=== PATIENT | female | born 1945 | race Caucasian/White ===

== ENCOUNTER → 2018-11-08 | Outpatient (CLI) | payer MEDICARE ==
[2018-11-08 11:46] LABS: BASO # 0.1 (0.02-0.10); EOS # 0.2 (0.04-0.40); EOS % 1.8 % (1.0-5.0); HEMATOCRIT 46.6 % (37.0-47.0); HEMOGLOBIN 14.8 g/dL (12.5-16.0); LYMPH# 1.3 (1.50-4.00); MEAN CELL VOLUME 84 fl (78-100); MEAN CORPUSCULAR HEMOGLOBIN 27 pg (27-31); MEAN CORPUSCULAR HGB CONC 32 g/dL (33-37); MONO # 0.9 (0.20-0.80); NEU # 6.2 (1.40-6.50); PLATELET COUNT 214 K/mm3 (130-400); RED BLOOD COUNT 5.54 M/mm3 (4.10-5.30); RED CELL DISTRIBUTION WIDTH 16.5 % (11.5-14.5); WHITE BLOOD COUNT 8.7 K/mm3 (4.8-10.8)
[2018-11-08 11:49] LABS: CALCIUM 9.2 mg/dL (8.4-10.2); POTASSIUM 4.7 mmol/L (3.6-5.0)
== END ==
LOC: LAB 11:16
PROVIDERS: Physician Assistant
DX: I50.9 Heart failure, unspecified (principal); E03.9 Hypothyroidism, unspecified; I48.91 Unspecified atrial fibrillation; L65.9 Nonscarring hair loss, unspecified; R23.8 Other skin changes; R68.89 Other general symptoms and signs

== ENCOUNTER → 2019-02-14 | Outpatient (CLI) | payer MEDICARE | LOC: RAD 09:59 → MAMMO 10:45 → RAD 10:45 | DX: Z00.00 Encounter for general adult medical examination without abnormal findings (principal); Z13.820 Encounter for screening for osteoporosis; Z12.31 Encounter for screening mammogram for malignant neoplasm of breast; I48.91 Unspecified atrial fibrillation; Z79.01 Long term (current) use of anticoagulants; E03.9 Hypothyroidism, unspecified; I50.9 Heart failure, unspecified; R41.89 Other symptoms and signs involving cognitive functions and awareness; R41.3 Other amnesia ==

== ENCOUNTER → 2019-02-14 | Outpatient (CLI) | payer MEDICARE | LOC: MAMMO 09:58 | DX: Z00.00 Encounter for general adult medical examination without abnormal findings (principal); Z12.31 Encounter for screening mammogram for malignant neoplasm of breast; I48.91 Unspecified atrial fibrillation; E03.9 Hypothyroidism, unspecified; I50.9 Heart failure, unspecified; R41.3 Other amnesia; R41.89 Other symptoms and signs involving cognitive functions and awareness; Z79.01 Long term (current) use of anticoagulants ==

== ENCOUNTER 2019-02-28 13:55 | Outpatient (RCR) | payer MEDICARE | END 2019-02-28 14:30 | disposition still patient (30) | LOC: SPEECH 13:55 | DX: Z00.00 Encounter for general adult medical examination without abnormal findings (principal); Z12.31 Encounter for screening mammogram for malignant neoplasm of breast; I48.91 Unspecified atrial fibrillation; E03.9 Hypothyroidism, unspecified; I50.9 Heart failure, unspecified; R41.81 Age-related cognitive decline; R41.3 Other amnesia; Z79.01 Long term (current) use of anticoagulants ==